=== PATIENT | male | born 1995 | race Hispanic/Latino ===

== ENCOUNTER 2019-02-18 13:11 | Inpatient (IN) | payer SELFPAY ==
[2019-02-18] MEDS ORDERED: Morphine 4 MG/ML VIAL ONE ×3 (13:19→15:37)
[2019-02-18] MEDS ORDERED: Adacel (T-DAP) 0.5 ML SYRINGE ONE ×2 (13:19→13:23)
--- NOTE | 2019-02-18 13:27 | RAD ---
EXAM: 3 views of the right hand COMPARISON: None HISTORY: Hand pain FINDINGS: 3 views of the right hand shows a fracture of the neck of the third metacarpal. No dislocat ion is seen. No degenerative changes are seen. Moderate dorsal soft tissue swelling is present. IMPRESSION: Third metacarpal fracture
[2019-02-18] MEDS ORDERED: CEFAZOLIN 2 GM in Premix Bag 1 BAG IVPB SCH (14:00)
[2019-02-18 16:17] LABS: #Basophils 0.1 thou/uL (0.0-0.2); #Eosinphils 0.1 thou/uL (0.0-0.7); #Lymphocytes 3.2 thou/uL (1.20-3.40); #Monocytes 0.9 thou/uL (0.11-0.59); %Basophils 0.7 % (0.0-1.0); %Lymphocytes 34.5 % (21.0-51.0); %Monocytes 9.4 % (0.0-10.0); %Neutrophils 54.4 % (42.0-75.0); Hemoglobin 12.6 g/dL (14.0-18.0); Mean Corpuscular Hemoglobin 29.1 pg (27.0-31.0); Mean Corpuscular Volume 85.8 fL (78.0-98.0); Platelet Count 295 thou/uL (130-400); RBC Distribution Width 12.3 % (11.5-14.5); Red Blood Cell (RBC) Count 4.31 mill/uL (4.70-6.10); White Blood Cell (WBC) Count 9.2 thou/uL (4.8-10.8)
[2019-02-18 16:26] LABS: ALT (SGPT) 10 U/L (8-55); AST (SGOT) 22 U/L (5-34); Albumin 3.8 g/dL (3.5-5.0); Alkaline Phosphatase 60 U/L (40-150); Anion Gap 12 mmol/L (10-20); BUN (Urea Nitrogen) 25 mg/dL (8.9-20.6); Bilirubin, Total 0.7 mg/dL (0.2-1.2); Calc. Creatinine Clearance 0 mL/min (70-130); Calcium 8.7 mg/dL (7.8-10.44); Carbon Dioxide 26 mmol/L (22-29); Chloride 100 mmol/L (98-107); Estimated GFR-MDRD Greater than 90; Globulin 2.6 g/dL (2.4-3.5); Glucose 102 mg/dL (70-105); INR-International Normal Ratio 1.1; Protein, Total 6.4 g/dL (6.0-8.3); Sodium 135 mmol/L (136-145)
[2019-02-18] MEDS ORDERED: Dextrose 50% Abboject 50 ML SYRINGE SLOW IVP PRN (16:31)
[2019-02-18] MEDS ORDERED: hydrALAZINE 20 MG/ML VIAL SLOW IVP PRN (16:31)
[2019-02-18] MEDS ORDERED: Morphine 4 MG/ML VIAL SLOW IVP PRN (16:31)
[2019-02-18] MEDS ORDERED: Ondansetron PF 4 MG/2 ML Vial IVP PRN (16:31)
[2019-02-18] MEDS ORDERED: Promethazine HCl 25 MG/ML VIAL IM PRN ×3 (16:31→22:21)
[2019-02-18] MEDS ORDERED: Dextrose 5% in Water 1,000 ML IV PRN (16:31)
[2019-02-18 16:32] LABS: Potassium 2.9 mmol/L (3.5-5.1)
[2019-02-18] MEDS ORDERED: Cyclobenzaprine 10 MG TAB PO PRN (16:34)
[2019-02-18] MEDS ORDERED: traMADol HCl 50 MG TAB PO PRN ×2 (16:34)
[2019-02-18] MEDS ORDERED: Ibuprofen 800 MG TAB PO SCH (16:45)
[2019-02-18] MEDS ORDERED: Sodium Chloride 0.9% 1,000 ML IV SCH ×2 (16:45→23:45)
--- NOTE | 2019-02-18 17:33 | HP ---
TRAUMA SURGEON: Dr. Ortega. CONSULTING PHYSICIAN: Dr. Baca. HISTORY OF PRESENT ILLNESS: The patient is a 23-year-old male, who presented to the emergency department via EMS and was activated as a level 2 trauma activation. The patient reports that he was at work doing yard work and his hand got caught between 2 moving parts of a forklift crushing his hand. On presentation, he complained of right hand pain and decrease in sensation. He did have a laceration to the dorsal aspect of his right hand. Upon evaluation by the Emergency Department, the patient was noted to have an open right-sided third metacarpal fracture. He denied tingling, but did report some decrease in sensation and decreased motor secondary to pain. PAST MEDICAL HISTORY: None. PAST SURGICAL HISTORY: None. SOCIAL HISTORY: The patient denies tobacco use. He drinks alcohol occasionally. He does have a history of marijuana use, but has not used any in the past 3 months. MEDICATIONS: None. ALLERGIES: NONE. PHYSICAL EXAMINATION: VITAL SIGNS: Temperature 98.4, respiratory rate 18, oxygen saturation 99% on room air, blood pressure 173/79, heart rate 85. PRIMARY ASSESSMENT: Airway intact. Adequate breath sounds bilaterally. 2+ pulses palpable in the bilateral radials, femorals, and DPs. GCS is 15. Gross motor and sensation are intact. Laceration to the dorsal aspect of the right hand with bleeding controlled. No bruising noted. SECONDARY SURVEY: HEAD: Normocephalic and atraumatic. No gross deformities of the skull. No tenderness. EYES: Pupils 3 to 2, equal, round, and reactive bilaterally. ENT: No hemotympanum. No epistaxis. No septal hematoma. Midface stable to manipulation. No blood in the oropharynx. Dentition is intact. NECK: No anterior neck injury/crepitus/tenderness. C-SPINE: No step-offs or deformities. Nontender. C-collar not in place. CHEST: Nontender. No crepitus. No abrasions or ecchymoses noted. Equal chest movement. ABDOMEN: Soft, nontender, and nondistended. PELVIS: Stable to palpation. Nontender. No abrasions or ecchymoses. RECTAL: Deferred. GENITOURINARY: Deferred. EXTREMITIES: About a 5-cm laceration to the dorsal aspect of the right hand with bleeding well controlled. No abrasions or ecchymoses noted. 2+ pulses in the bilateral radials, femorals, and DPs. BACK/SPINE: No step-offs, deformities, or tenderness to palpation of the thoracic or lumbar spine. No abrasions or ecchymoses noted. NEUROLOGIC: 5/5 strength in the bilateral lower extremities and the left upper extremity. Decreased strength in the right hand secondary to pain with decreased sensation in the right hand as well. Otherwise, normal sensation in the bilateral lower extremities and left upper extremity. LABORATORY FINDINGS: White count 9.2, hemoglobin 12.6, hematocrit 37.0, platelets 295. INR 1.1. Sodium 135, potassium 2.9, chloride 100, carbon dioxide 26, BUN 25, creatinine 0.95, glucose 102, total bilirubin 0.7, AST 22, ALT 10. DIAGNOSTIC FINDINGS: X-ray of the right hand demonstrates third metacarpal fracture. ASSESSMENT: 1. Status post crush injury to right hand. 2. Right open third metacarpal fracture. 3. Hypokalemia. PLAN: The patient to be admitted to the Trauma Service on the floor. Dr. Baca of Orthopedic Surgery has been consulted and has seen the patient. He plans to take the patient to the OR later this evening. The patient to be n.p.o. with normal saline at 120 an hour. Pain control with oral and IV medications. The patient to work with OT starting tomorrow postoperatively. The patient will receive IV potassium chloride for replacement preoperatively. He will also receive IV fluid bolus as he appears to be dehydrated from working outside. He has already received tetanus update and Ancef in the emergency department. The patient was discussed with Dr. Ortega before this dictation. Job ID: [id number]
[2019-02-18] MEDS ORDERED: Potassium Chloride 40 MEQ in Sodium Chloride 0.9% 500 ML IVPB SCH (18:00)
[2019-02-18] MEDS ORDERED: Fentanyl 100 MCG/2 ML VIAL ONE ×4 (19:05→22:48)
[2019-02-18] MEDS ORDERED: Bacitracin Zinc Ointment 30 gm TUBE ONE ×2 (19:54→20:02)
[2019-02-18] MEDS ORDERED: Bupivacaine PF 0.5% 30 ML VIAL ONE ×2 (19:54→20:02)
[2019-02-18] MEDS ORDERED: Sodium Chloride 0.9% 50 ML ONE (19:54)
[2019-02-18] MEDS ORDERED: Thrombin 5000 UNITS/5 ML VIAL ONE (20:02)
[2019-02-18] MEDS ORDERED: Fentanyl 100 MCG/2 ML VIAL SLOW IVP PRN (21:53)
[2019-02-18] MEDS ORDERED: Ondansetron ODT 4 MG TAB PO PRN (21:53)
[2019-02-18] MEDS ORDERED: Meperidine HCl/PF 25 MG/ML VIAL IM PRN (21:59)
[2019-02-18] MEDS ORDERED: Ketorolac Tromethamine 30 MG/ML VIAL IVP PRN (21:59)
[2019-02-18] MEDS ORDERED: TETANUS AND DIPHTHERIA TOX/PF 0.5 ML DISP.SYRIN IM SCH (22:00)
[2019-02-18] MEDS ORDERED: Communication Order-Pharmacy FS SCH (22:00)
[2019-02-18] MEDS ORDERED: Promethazine HCl 25 MG/ML VIAL SLOW IVP PRN (22:21)
[2019-02-18] MEDS ORDERED: Ondansetron HCl/PF 4 MG/2 ML Vial IVP PRN (22:21)
[2019-02-18] MEDS: Acetaminophen 1,000 MG in Premix Bag 1 BAG IVPB SCH (23:54)
[2019-02-19] MEDS: Senokot S 8.6-50 MG TAB PO SCH ×2 (00:01→09:25)
[2019-02-19] MEDS: Famotidine 20 MG TAB PO SCH ×2 (00:01→09:25)
[2019-02-19] MEDS: Vancomycin HCl 1 GM in Premix Bag 1 BAG IVPB SCH ×2 (00:01→15:07)
[2019-02-19] MEDS: Sodium Chloride 0.9% 100 ML IV SCH (00:02)
[2019-02-19 00:25] VITALS: BMI 25.0
[2019-02-19] MEDS: Acetaminophen 1,000 MG in Premix Bag 1 BAG IVPB SCH ×3 (01:03→15:07)
[2019-02-19 05:18] LABS: #Basophils 0.1 thou/uL (0.0-0.2); #Eosinphils 0.1 thou/uL (0.0-0.7); #Lymphocytes 2.7 thou/uL (1.20-3.40); #Monocytes 0.9 thou/uL (0.11-0.59); #Neutrophils 4.1 thou/uL (1.40-6.50); %Basophils 0.8 % (0.0-1.0); %Eosinophils 1.2 % (0.0-10.0); %Lymphocytes 34.2 % (21.0-51.0); %Monocytes 11.3 % (0.0-10.0); %Neutrophils 52.5 % (42.0-75.0); Hemoglobin 11.2 g/dL (14.0-18.0); Mean Corpuscular HGB CONC 34.1 g/dL (32.0-36.0); Mean Corpuscular Hemoglobin 29.6 pg (27.0-31.0); Mean Corpuscular Volume 86.8 fL (78.0-98.0); Mean Platelet Volume 6.6 fL (7.4-10.4); Platelet Count 238 thou/uL (130-400); RBC Distribution Width 12.1 % (11.5-14.5); Red Blood Cell (RBC) Count 3.78 mill/uL (4.70-6.10); White Blood Cell (WBC) Count 7.7 thou/uL (4.8-10.8)
[2019-02-19 05:40] LABS: Anion Gap 9 mmol/L (10-20); BUN (Urea Nitrogen) 11 mg/dL (8.9-20.6); Calc. Creatinine Clearance 147 mL/min (70-130); Calcium 8.5 mg/dL (7.8-10.44); Carbon Dioxide 29 mmol/L (22-29); Chloride 104 mmol/L (98-107); Estimated GFR-MDRD Greater than 90; Glucose 74 mg/dL (70-105); Potassium 3.4 mmol/L (3.5-5.1); Sodium 139 mmol/L (136-145)
[2019-02-19] MEDS ORDERED: Potassium Phosphate 30 MMOL in Sodium Chloride 0.9% 500 ML IVPB SCH (07:45)
[2019-02-19] MEDS ORDERED: Aspirin 81 mg Enteric Coated Tablet PO SCH (09:00)
[2019-02-19] MEDS ORDERED: Polyethylene Glycol 3350 17 GM Packet PO SCH (09:00)
[2019-02-19] MEDS: Gabapentin 300 MG CAP PO SCH ×3 (09:25→15:07)
--- NOTE | 2019-02-19 09:33 | RAD ---
RIGHT FINGER 2 VIEWS: HISTORY: ORIF right third finger. FINDINGS/IMPRESSION: Two spot fluoroscopic intraoperative images of the right hand demonstrate an interval pinning of the fracture of the neck of the right third metacarpal seen on the earlier exam of same date. POS: NATASHA
--- NOTE | 2019-02-19 13:08 | DIS ---
DATE OF ADMISSION: 02/18/2019 DATE OF DISCHARGE: 02/19/2019 ADMISSION DIAGNOSES: Crush injury to right hand, right open third metacarpal fracture, and hypokalemia. DISCHARGE DIAGNOSES: Crush injury to right hand, right open third metacarpal fracture, and hypokalemia. CONSULTING PHYSICIAN: Dr. Baca of Hand Trauma Surgery. PROCEDURES: The patient went to the OR on February 18, 2019, and received a fixation of his right third metacarpal fracture. HOSPITAL COURSE: The patient is a 23-year-old male who presented to the emergency department via EMS as a level 2 trauma activation. The patient was doing gardening when his hand got stuck in between 2 moving parts of a forklift, subsequently crushing his hand. Upon further evaluation by the emergency department, it was found that he had a right open third metacarpal fracture. Laboratory findings revealed hypokalemia. The patient was admitted to the Trauma Service, and Dr. Baca of Hand Surgery was consulted. The patient also received IV repletion of potassium. The patient went to the OR that day for fixation of the right open third metacarpal fracture. Postoperatively, the patient received IV antibiotics. At the time of discharge, he was tolerating a regular diet. Pain was well controlled. He was ambulating without difficulties, and he was voiding without issues. DISCHARGE DISPOSITION: Home. DISCHARGE CONDITION: Satisfactory. PHYSICAL EXAMINATION: VITAL SIGNS: Temperature 98.3, pulse 90, respirations 14, oxygen saturation is 100% on room air, and blood pressure 119/74. GENERAL: Well-appearing young male, sitting up in bed with no signs of acute distress. PULMONARY: Equal chest rise and fall. Clear breath sounds bilaterally. No signs of acute respiratory distress. CARDIAC: Regular rate and rhythm. No murmurs, gallops, or rubs. GASTROINTESTINAL: Soft, nontender, nondistended. EXTREMITIES: 2+ pulses in all extremities. No significant swelling noted. Gross motor and sensation intact in all extremities. Right hand with dressing in place is clean, dry, and intact with no signs of infection. NEUROLOGIC: GCS is 15. Gross motor and sensation intact. DISCHARGE INSTRUCTIONS: The patient was discharged to home with follow up with Dr. Baca. Activity as tolerated with regular diet. He is not to return to work until after his followup with Dr. Baca. DISCHARGE MEDICATIONS: Include: 1. Tylenol. 2. Ibuprofen. 3. Aspirin. 4. Clindamycin x7 days. FOLLOWUP APPOINTMENTS: The patient is to follow up with Dr. Baca of Hand Surgery on February 23 at 11:40 a.m. This is merely a summary of the patient's hospitalization. For full details, please see his medical record in its entirety. Job ID: [id number]
[2019-02-19 16:10] VITALS: BP 121/75; TEMP 98.4
--- NOTE | 2019-02-21 08:04 | HP ---
ADDENDUM: For full history, please see the H and P dictated by Sandy Castrejon PA-C, the details of which I have confirmed with the patient. HISTORY OF PRESENT ILLNESS: In short, Mr. Youngblood is a healthy 23-year-old man, who underwent a crush injury at work when his hand got caught between the forklift tines and the body of the forklift. He was found to have an open metacarpal fracture of the right third metacarpal bone. He states that he has diminished sensation and movement in his third and fourth finger and to some degree in his fifth finger, but his index finger and thumb are normal. He denies any other injuries. I did perform the physical examination and no other injuries were identified. He has normal capillary refill of all five fingertips, but was splinted and the splint was not removed as he had just been examined by Dr. Baac. PAST MEDICAL AND PAST SURGICAL HISTORY: He does not have any significant past medical or surgical history. SOCIAL HISTORY: He drinks occasionally and has a history of past marijuana use, but none recently. MEDICATIONS: He does not take any medications. ALLERGIES: HE HAS NO ALLERGIES. REVIEW OF SYSTEMS: Negative except per HPI. I saw the patient preoperatively in the Day Stay holding area and briefly postoperatively, at which point, he was doing well. Labs are unremarkable and he has already undergone washout and fixation of his metacarpal fracture by Dr. Baca. I anticipate that he will soon be ready for discharge with occupational therapy and hand surgery followup. Job ID: [id number]
--- NOTE | 2019-02-21 09:08 | OP ---
DATE OF PROCEDURE: 02/18/2019 PREOPERATIVE DIAGNOSES: 1. Open wound, 8 cm, right hand, complex, involving metacarpal. 2. Right middle finger metacarpal head fracture, open. 3. Wound with tendon involvement, small finger extensor digitorum communis, approximately 25% laceration. POSTOPERATIVE DIAGNOSES: 1. Open wound, 8 cm, right hand, complex, involving metacarpal. 2. Right middle finger metacarpal head fracture, open. 3. Wound with tendon involvement, small finger extensor digitorum communis, approximately 25% laceration. 4. Minimal dirt particles within the wound; however, the skin around it was extremely dirty based on industrial environment and accident at work. PROCEDURES PERFORMED: 1. Open wound debridement. 2. Debridement of material associated with open fracture. 3. Open reduction and internal fixation of fracture of metacarpal head, middle finger. 4. C-arm supervision. 5. Closure of wound, 8 cm. 6. Application of short-arm splint. 7. Extensor digitorum communis, ring finger repair. ESTIMATED BLOOD LOSS: 20 mL. TOURNIQUET TIME: 22 minutes. INJECTABLE: 30 mL of 0.5% Marcaine, 15 prior to procedure and 15 after wound closure. INDICATIONS: The patient had an induction environment at work. He reports that his hand was caught between his forklift and the sidewall leading to an open wound, pain, and initially quite a bit of numbness. By the time of my evaluation, he reports that most of the numbness on the dorsal hand had decreased. No compartment syndrome, but he did have a radiographic evidence of fracture over the 3rd metacarpal head. This was within the wound environment and it was felt that he needed to have debridement as minimal as possible and fracture fixation. DESCRIPTION OF PROCEDURE: After successful general endotracheal anesthesia, limb was prepped and draped. Time-out was done and the site, side, and the listed procedure matched that of the records and the consent. He then had 15 mL of 0.5% Marcaine along the wound and the planned oblique incision, extended distal to proximal. We exsanguinated the limb 5 minutes later and inflated the tourniquet at 250 mmHg pressure. We then carried the incision proximal and distal 2 cm to expose the entire area and minimal particle contamination superficially. The wound edges were jagged, so they were debrided using the 11 blade knife. Instruments used for the debridement included a curette, tenotomy scissors, Adson's, and 5 L Pulsavac. We then dissected down to where we saw the fracture, it appeared to be no direct contamination, but we opened the joint capsule slightly, visualized it, and continued the same debridement there. There was some hematoma that had been evacuated, also debrided. It was all excisional technique and depth included down to debriding the material associated with open fracture. We then finished the Pulsavac irrigation. We had already done. I visualized there was a 25% extensor digitorum communis laceration proximal to the metacarpal head, so we repaired this with a [id number] 4-0 Prolene. We then did x2 from the same ray ulnar side of the metacarpal head fracture, avoiding the chondral surface, and it was very stable with no gross motion and in excellent position in frontal sagittal plane. Because the wound had minimal internal contamination, we decided to close the wound, which we did, and we used interrupted 4-0 nylon single layer. Tourniquet was deflated. Hemostasis was obtained. Before closure, we gave additional 15 mL of Marcaine, and we then placed him in a short-arm splint with the MP joints at 65 degrees of flexion and the wrist at 20 degrees at dorsiflexion. He left the operating room without evidence of anesthetic or operative complication. Job ID: [id number]
[2019-02-24] MEDS ORDERED: Ibuprofen 800 MG TAB PO SCH (06:00)
== END 2019-02-19 18:22 | disposition home or self-care (01) | DRG 906 ==
LOC: ERS 13:11 → SDC 17:39 → SURG A 22:38
PROVIDERS: ADMIT Surgery; ATTEND Surgery
PROC: 0PSP04Z Reposition Right Metacarpal with Internal Fixation Device, Open Approach (ICD-10-PCS; principal; 2019-02-18)
PROC: 0PST04Z Reposition Right Finger Phalanx with Internal Fixation Device, Open Approach (ICD-10-PCS; 2019-02-18)
PROC: 2W3CX1Z Immobilization of Right Lower Arm using Splint (ICD-10-PCS; 2019-02-18)
DX: S67.21XA Crushing injury of right hand, initial encounter (principal); S62.302B Unspecified fracture of third metacarpal bone, right hand, initial encounter for open fracture; F12.10 Cannabis abuse, uncomplicated; E87.6 Hypokalemia; E86.0 Dehydration; Y93.89 Activity, other specified; Z87.891 Personal history of nicotine dependence; W31.89XA Contact with other specified machinery, initial encounter
CPT/HCPCS: 36415; 76000; 80048; 80053; 83735; 84100; 85025; 85610; 85730; 90715; G0390; J0131; J0690; J1885; J2270; J3010; J3370; J3480; J3490; J7050; S0020

== ENCOUNTER 2019-03-04 12:30 | Emergency (ER) | payer OTHER, SELFPAY ==
--- NOTE | 2019-03-04 13:27 | RAD ---
THREE VIEWS RIGHT HAND: COMPARISON: 02/18/2019. HISTORY: Status post pi placement of 3rd metacarpal fracture. FINDINGS: Three views of the right hand show the patient to be status post percutaneous fixation of a distal 3r d metacarpal fracture. No perihardware lucency is seen. Surrounding soft tissue swelling is present . IMPRESSION: Status post percutaneous fixation of 3rd metacarpal fracture. POS: CET
== END 2019-03-04 15:12 | disposition home or self-care (01) ==
LOC: ERS 12:30
DX: G89.18 Other acute postprocedural pain (principal); M79.641 Pain in right hand; F17.210 Nicotine dependence, cigarettes, uncomplicated
CPT/HCPCS: 29125